=== PATIENT | female | born 1995 | race Caucasian/White ===

== ENCOUNTER 2019-12-26 11:33 | Emergency (ER) | payer SELFPAY ==
[2019-12-26] MEDS ORDERED: HYDROcodone/Acetaminophen 10/325 mg Tablet ONE (12:01)
== END 2019-12-26 12:05 | disposition home or self-care (01) ==
LOC: NAV ERS 11:33
DX: K04.7 Periapical abscess without sinus (principal); L02.01 Cutaneous abscess of face; F90.9 Attention-deficit hyperactivity disorder, unspecified type; F31.9 Bipolar disorder, unspecified; F41.9 Anxiety disorder, unspecified; F17.210 Nicotine dependence, cigarettes, uncomplicated
CPT/HCPCS: 99283